=== PATIENT | female | born 1975 | race Hispanic/Latino ===

== ENCOUNTER 2018-12-02 | Inpatient (IN) | payer MEDICARE | END 2018-12-06 14:45 | disposition home or self-care (01) | LOC: EDH → EDHIP 02:50 → 2DH 03:43 | DX: I50.31 Acute diastolic (congestive) heart failure (principal); J96.21 Acute and chronic respiratory failure with hypoxia; E66.2 Morbid (severe) obesity with alveolar hypoventilation; E87.70 Fluid overload, unspecified ==

== ENCOUNTER 2018-12-20 19:17 | Inpatient (IN) | payer MEDICARE | END 2018-12-27 14:25 | disposition home or self-care (01) | LOC: EDH 19:17 → EDHIP 20:30 → 2AH 23:33 | DX: J44.1 Chronic obstructive pulmonary disease with (acute) exacerbation (principal); J96.22 Acute and chronic respiratory failure with hypercapnia; E66.2 Morbid (severe) obesity with alveolar hypoventilation; I50.22 Chronic systolic (congestive) heart failure; Z68.45 Body mass index [BMI] 70 or greater, adult; I50.9 Heart failure, unspecified ==